=== PATIENT | male | born 1985 | race African-American/Black ===

== ENCOUNTER 2017-06-24 03:54 | Emergency (ER) | payer OTHER, MEDICAID ==
[~2017-06-24] VITALS: Ht 170.2 cm; Wt 73.0 kg
[2017-06-24] MEDS ORDERED: CEFTRIAXONE SODIUM 250 MG/VIAL IM ONE (07:00)
[2017-06-24] MEDS ORDERED: AZITHROMYCIN 500 MG TABLET PO ONE (07:00)
[2017-06-24 07:14] LABS: CLARITY URINE CLOUDY (CLEAR); COLOR URINE YELLOW (YELLOW); GLUCOSE URINE NEGATIVE (NEGATIVE); KETONES URINE NEGATIVE (NEGATIVE); LEUKOCYTE ESTERASE URINE 3+ (NEGATIVE); NITRITE URINE NEGATIVE (NEGATIVE); OCCULT BLOOD URINE TRACE (NEGATIVE); PH URINE 7.5 (4.5-8.0); PROTEIN URINE NEGATIVE (NEGATIVE); SPECIFIC GRAVITY URINE 1.007 (1.005-1.030); UROBILINOGEN URINE 0.2 E.U./dL (0.2-1.0)
[2017-06-24] MEDS ORDERED: LIDOCAINE HCL 1% 20ML VIAL (Pyxis) INJ INFIL ONE (07:30)
[2017-06-24 07:43] VITALS: BP 115/69
[2017-06-24] MEDS ORDERED: PHENAZOPYRIDINE HCL 100MG TABLET PO ONE (07:45)
== END 2017-06-24 08:06 | disposition home or self-care (01) ==
LOC: ER 06:51
DX: N34.2 Other urethritis (principal); F17.200 Nicotine dependence, unspecified, uncomplicated; F12.10 Cannabis abuse, uncomplicated
CPT/HCPCS: 81001; 87086; 96372; 99284; J0696; J3490; 99283

== ENCOUNTER 2018-08-18 10:13 | Emergency (ER) | payer MEDICAID, OTHER ==
[~2018-08-18] VITALS: Ht 167.6 cm; Wt 73.0 kg
[2018-08-18] MEDS ORDERED: KETOROLAC 60MG/2ML VIAL IM ONE (12:00)
[2018-08-18 12:11] VITALS: BP 129/53
== END 2018-08-18 12:14 | disposition home or self-care (01) ==
LOC: ER 10:54
DX: M54.5 Low back pain (principal); F12.10 Cannabis abuse, uncomplicated; F17.200 Nicotine dependence, unspecified, uncomplicated; J45.909 Unspecified asthma, uncomplicated; Z87.828 Personal history of other (healed) physical injury and trauma
CPT/HCPCS: 96372; 99283; J1885